=== PATIENT | male | born 1955 | race Caucasian/White ===

== ENCOUNTER 2024-01-28 07:32 | Day surgery (SDC) | payer BC ==
[2024-01-28] VITALS (9 sets, daily range): BP systolic 121–163; BP diastolic 72–96; PULSE 59–75; RESP 13–20; TEMP 97.8; O2SAT 92–95
[~2024-01-28] VITALS: Ht 177.8 cm; Wt 104.3 kg
[~2024-01-28 07:32] MED LIST: APIX5TAB PO; LOSA-535 PO; METO25TA5 PO; THYR60TA PO
[2024-01-28] MEDS ORDERED: IODIXANOL 320MG/ML 100ML BTL IV ONE ×2 (07:39→08:59)
[2024-01-28] MEDS ORDERED: HEPARIN IN NS 1000Units/500mL 1,500 ML ONE (07:39)
[2024-01-28] MEDS ORDERED: HEPARIN SODIUM (PORCINE) 5000 UNITS/ML 1ML VIAL ONE (09:06)
[2024-01-28] MEDS ORDERED: ANGIOMAX 250 MG VIAL IV ONE (09:06)
[2024-01-28] MEDS ORDERED: fentaNYL CITRATE 100 MCG/2 ML VL ONE (09:07)
[2024-01-28] MEDS ORDERED: MIDAZOLAM HCL 2MG/2ML 2ml VIAL (1mg/ml) ONE (09:07)
[2024-01-28] MEDS ORDERED: LIDOCAINE 2%HCL (LOCAL ANESTH.) INJ 20ML MDV ONE (09:07)
[2024-01-28] MEDS ORDERED: SODIUM CHL 0.9% 0 ML ONE (09:07)
[2024-01-28] MEDS ORDERED: VERAPAMIL 2.5MG/ML INJ 2ML VIAL IV ONE (09:07)
== END 2024-01-28 14:06 | disposition home or self-care (01) ==
LOC: CATH 07:32
PROVIDERS: ATTEND Internal Medicine
DX: I25.10 Atherosclerotic heart disease of native coronary artery without angina pectoris (principal); I10 Essential (primary) hypertension; G47.33 Obstructive sleep apnea (adult) (pediatric); Z91.09 Other allergy status, other than to drugs and biological substances; Z82.49 Family history of ischemic heart disease and other diseases of the circulatory system
CPT/HCPCS: 75580; 93458; C1887; C1894; J1644; J2250; J3010; J7030; Q9967; 99152

== ENCOUNTER 2025-03-26 20:59 | Inpatient (IN) | payer BC, MEDICARE ==
[~2025-03-26] VITALS: Ht 175.3 cm; Wt 104.6 kg
--- NOTE | 2025-03-26 21:13 | ECG ---
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
[2025-03-26 21:30] LABS: Hematocrit 43.8 % (41.0-53.0); Hemoglobin 15.0 g/dL (13.5-17.5); Mean Corpuscular Hemoglobin 30.2 pg (28.0-32.0); Mean Corpuscular Volume 88.5 fL (80.0-100.0); Nucleated Red Blood Cells % 0.1 %
[2025-03-26 21:36] LABS: Chloride 102 mmol/L (98-107); Potassium 4.6 mmol/L (3.5-5.1); Sodium 141 mmol/L (136-145)
[2025-03-26 21:37] LABS: Anion Gap 13 (5-15); Calcium 10.1 mg/dL (8.7-10.4); Carbon Dioxide 26 mmol/L (20-31)
--- NOTE | 2025-03-26 21:40 | DVH ---
CHEST RADIOGRAPH Indication: chest pain Technique: Single frontal view of the chest was obtained COMPARISON: None FINDINGS: Lines and Tubes: None Lungs: Clear Pleura: No effusion. No pneumothorax. Cardiomediastinal contours: Unremarkable Bones: Unremarkable IMPRESSION: 1. No acute disease.
[2025-03-26 21:42] LABS: BUN/Creatinine Ratio 12.9 (10.0-20.0); Blood Urea Nitrogen 17 mg/dL (9-23); Glucose 101 mg/dL (74-106)
--- NOTE | 2025-03-26 21:45 | ED.PDOC ---
HPI Comments 69 y/o obese M presents with c/c of nonradiating, left-sided chest pain that radiates to his left arm. Patient reports sudden, unprovoked, and atraumatic onset of pain, this evening, while driving. Pain wanes in severity. He reports mild pain, currently. Associated left-arm tingling sensations, dizziness, and hot flashes. Took 4x baby ASA's prior to ED arrival. He reports being waned off Eliquis he takes daily for DVT's he has had in the past, currently. Last oral intake of Eliquis was yesterday. Left heart catheterization performed by php magento developer Dr. Goldsmith 4-5 months ago. Past medical history:Cardiomyopathy, COPD, DVT's - on Eliquis Past surgical history: back surgery FAUCT: CP. HPI: Poor Historian. REVIEW OF SYSTEMS: CONSTITUTIONAL: Denies acute: fever, diaphoresis, chills, HEAD: Denies acute: headache, photophobia Eyes: Denies acute: Double vision, vision loss, eye pain, eye discharge. EARS: Denies acute: tinnitus, hearing loss, ear discharge, ear pain, THROAT: Denies acute: sore throat, swelling, difficulty swallowing , pain with swallowing, change in voice. NECK: Denies acute: neck pain, neck swelling, stiff neck. HEART: Denies acute : palpitations, LUNGS: Denies acute: SOB, wheezing, cough, hemoptysis ABDOMEN: Denies acute: abdominal pain, Nausea, Vomiting, diarrhea, melena , hematemesis, hematochezia SKIN: Denies acute: rash, redness, lesions, itchiness. EXTREMITIES: Denies acute: calf pain, , , weakness, denies pain in extremity. Denies acute: Low back pain. Neuro: Denies acute: focal neurological deficit, motor or sensory focal neurological deficit, tremors, seizure like activity, confusion, , change in mental status, loss of bowel or bladder function, cauda equina like symptoms. : Denies acute: dysuria, hematuria, flank pain, increase in urinary frequency. PSYCH: Denies acute: hallucination, suicidal ideation, homicidal ideation. PHYSICAL EXAM: General: ----mild----acute distress, awake and alert. Head: normocephalic, atraumatic. No raccoon's eyes, no huitron sign. Neck: supple, trachea is midline, no swelling. Throat: Normal phonation. Eyes:, no erythema, no purulent discharge, no proptosis, no icterus. Heart: regular rate, regular rhythm, no significant murmur appreciated. Lungs: no apparent respiratory distress, Able to speak in full sentences. No wheezing, no rhonchi, no crackles. No stridors Clear to auscultation bilaterally. Abdomen: non tender to palpation, non distended, soft, no guarding, no rebound, + bowel sounds. Neuro: Awake, Alert, oriented to name, self, situation, follows commands GCS=15. Speech is normal. Skin: no petechia, no purpura, no cyanosis, non-pale, not jaundice. Lower extremities: --no - Pitting edema no deformity, no focal swelling, no calf TTP. Makes eye contact. moves all four extremities. Face: no apparent facial droop. Ambulating in the ED independently. ED COURSE: DISCLAIMER: This medical document was created using an electronic medical record system with voice recognition software and computerized dictation system. Although this document has been carefully reviewed, there might still be some phonetic and typographical errors. Occasional wrong-word or "sound-alike" substitutions may have occurred due to the inherent limitations of voice recognition software. These areas are purely typographical due to imperfections of the software programs and do not reflect any compromise in the patient's medical care. Please read the chart carefully and recognize, using context, where these substitutions have occurred. Chief Complaint: Chest Pain Time Seen by MD: 21:15 Allergies: Coded Allergies: Rivaroxaban (Verified Allergy, Unknown, RASH, 01/23/24) Home Meds Reported Medications Metoprolol Tartrate (Metoprolol Tartrate) 25 Mg Tab, 25 MG PO DAILY for HTN for 30 Days, MG 01/23/24 Apixaban Base (ELIQUIS) 5 Mg Tab, 5 MG PO BID for STOP ON 01/25/24, TAB 01/23/24 Thyroid ([place] Thyroid) 60 Mg Tab, 1 TAB PO DAILY for LOW THYROID, #30 TAB 5 Refills 01/23/24 Losartan Potassium (Losartan Potassium) 100 Mg Tab, 100 MG PO DAILY for HTN for 30 Days, MG 01/23/24 Information Source: Patient Mode of Arrival: Ambulatory EKG EKG : Pulse Rate (adult): 73 Parrott: Normal Cardiac Rhythm: NSR Block: None Hypertrophy: None ST: Normal Was a procedure done? Was a procedure done?: No CP Differential Dx Differential Diagnosis: N/A Differential Diagnosis: Other (Ddx include but not limitied to gastritis, musculoskeletal pain, radiculopathy, atypical chest pain, dissection, aneurysm, ACS, unstable angina, hiatal hernia, GERD, anxiety, costochondritis, PE, pneumothroax, neoplasm, cardiac ischemia, drug abuse, anemia.) X-Ray, Labs, Meds, VS Vital Signs Date Time Temp Pulse Resp B/P (MAP) Pulse Ox O2 Delivery O2 Flow Rate FiO2 03/26/25 22:30 69 03/26/25 21:45 73 03/26/25 21:11 73 03/26/25 21:00 97.6 78 16 188/95 96 97.6 Lab Test 03/26/25 22:00 03/26/25 21:09 03/26/25 21:08 Range/Units Troponin I High Sensitivity < 3 L < 3 L </=54 ng/L Sodium Level 141 136-145 mmol/L Potassium Level 4.6 3.5-5.1 mmol/L Chloride Level 102 98-107 mmol/L Carbon Dioxide Level 26 20-31 mmol/L Anion Gap 13 5-15 Blood Urea Nitrogen 17 9-23 mg/dL Creatinine 1.32 H 0.700-1.30 mg/dL Glomerular Filtration Rate Calc 58 >90 mL/min BUN/Creatinine Ratio 12.9 10.0-20.0 Serum Glucose 101 74-106 mg/dL Calcium Level 10.1 8.7-10.4 mg/dL White Blood Count 7.8 4.4-10.8 10^3/uL Red Blood Count 4.95 4.5-5.90 10^6/uL Hemoglobin 15.0 13.5-17.5 g/dL Hematocrit 43.8 41.0-53.0 % Mean Corpuscular Volume 88.5 80.0-100.0 fL Mean Corpuscular Hemoglobin 30.2 28.0-32.0 pg Mean Corpuscular Hemoglobin Concent 34.2 32.0-36.0 g/dL Red Cell Distribution Width 13.9 11.8-14.3 % Platelet Count 279 140-450 10^3/uL Mean Platelet Volume 6.7 L 6.9-10.8 fL Neutrophils (%) (Auto) 60.1 37.0-80.0 % Lymphocytes (%) (Auto) 25.7 10.0-50.0 % Monocytes (%) (Auto) 10.5 0.0-12.0 % Eosinophils (%) (Auto) 3.0 0.0-7.0 % Basophils (%) (Auto) 0.7 0.0-2.0 % Neutrophils # (Auto) 4.7 1.6-8.6 10 ^3/uL Lymphocytes # (Auto) 2.0 0.4-5.4 10 ^3/uL Monocytes # (Auto) 0.8 0-1.3 10 ^3/uL Eosinophils # (Auto) 0.2 0-0.8 10 ^3/uL Basophils # (Auto) 0.1 0-0.2 10 ^3/uL Nucleated Red Blood Cells 0.1 % Current Medications Medications (Trade) Dose Ordered Sig/Randall Route Start Time Stop Time Status Last Admin Nitroglycerin (Ntrostat Sublingual) 0.4 mg ONCE ONCE SL 03/26/25 21:45 03/26/25 21:46 DC 03/26/25 23:35 Time of 1ST Reevaluation: 00:00 Reevaluation 1ST: Unchanged Patient Education/Counseling: Diagnosis, Treatment Family Education/Counseling: No Family Present Comments MDM: patient presented with the above HPI.---cardiac---workup was initiated. patient was found with the above mentioned diagnosis. the following medications were ordered: please refer to order lists of meds and tests obtained by myself Dr. Miller. Patient ED course and VS have been stabilized. Patient has been reassessed in the ED and remained in a stable condition. Pertinent incidental findings were discussed with the patient and/or family. Patient/family voices understanding and is agreeable with plan. Patient has been observed in the ED adequate length of time to insure improvement/stability. Escalation of care considered: Consideration of escalation to observation or admission Patient was ADMITTED to the medicine team for further evaluation and treatment of their presentation. All the reports of any imaging studies that were ordered by myself were reviewed by myself. SEPSIS Sepsis Screen Date sepsis recognized/suspect: Mar 26, 2025 Time Sepsis recognized/suspect: 2103 Recent Procedure: No On Antibiotic Therapy: No Respiratory Rate >20: No Heart Rate >90: No Temp<36 C (96.8 F) or >38.3 C: No SBP <90 or MAP <65 mmHG: No New Acute Mental Status Change: No Is the patient on CPAP, BIPAP,: No Physician Orders Chest Portable (03/26/25 21:05) Electrocardigram (03/26/25 21:05) Electrocardigram (03/26/25 22:05) Electrocardigram (03/27/25 00:05) Vital Signs Date Time Temp Pulse Resp B/P (MAP) Pulse Ox O2 Delivery O2 Flow Rate FiO2 03/26/25 22:30 69 03/26/25 21:45 73 03/26/25 21:11 73 03/26/25 21:00 97.6 78 16 188/95 96 97.6 Laboratory Tests Test 03/26/25 21:08 White Blood Count 7.8 10^3/uL (4.4-10.8) Departure 1 Departure Time of Disposition: 21:47 Impression: Primary Impression: Chest pain Disposition: ADMITTED INPATIENT Admit to: Tele Condition: Guarded Discharged With: Self Critical Care Note Critical Care Time?: No Heart Score Heart Score: Heart Score Response (Comments) Value History Moderate Suspicious 1 EKG Normal 0 Age >65 2 Risk Factors >3 or Hx ASHD 2 Troponin Normal limit 0 Total 5 I personally scribed for TRACE MILLER DO ([email or web address]) on 03/26/25 at 21:45. Electronically submitted by Dionicio Escamilla ([email or web address]). I personally scribed for TRACE MILLER DO ([email or web address]) on 03/26/25 at 21:46. Electronically submitted by Dionicio Escamilla ([email or web address]). TRACE MILLER DO Mar 26, 2025 21:45
[2025-03-26] MEDS ORDERED: NITROGLYCERIN 0.4 MG SL TAB SL PRN (23:15)
[2025-03-26] MEDS ORDERED: HYDROcodone-ACET 5/325MG TAB PO PRN (23:15)
[2025-03-26] MEDS ORDERED: ACETAMINOPHEN 325 MG TAB PO PRN (23:15)
[2025-03-26] MEDS ORDERED: MORPHINE SULFATE INJ 2 MG/ml SYRG IV PRN ×2 (23:15)
[2025-03-26] MEDS ORDERED: hydrALAZINE HCL 20 MG/ML VL IV PRN (23:15)
[2025-03-26] MEDS ORDERED: DOCUSATE SOD 100 MG CAP PO PRN (23:15)
[2025-03-26] MEDS ORDERED: ONDANSETRON HCL 4 MG/2 ML VIAL IV PRN (23:15)
[2025-03-26] MEDS: NITROGLYCERIN 0.4 MG SL TAB SL ONE (23:35)
[2025-03-27] VITALS (9 sets, daily range): BP systolic 125–163; BP diastolic 74–95; PULSE 59–85; RESP 13–18; TEMP 97.2–98.7; O2SAT 92–97
--- NOTE | 2025-03-27 00:36 | DVHHP2 ---
MILTON HUSAIN EMAIL PRODUCTION SPECIALIST 03/27/25 0036: History of Present Illness Reason for Visit: Chest pain History of Present Illness 69-year-old male with past medical history of hypertension, DVT on Eliquis presents with complaints of chest pain x1 day. Patient endorses chest pain is unprovoked. Chest pain is left-sided radiating to the left arm. Patient also endorsed feeling flushed and dizzy. Patient endorsed taking aspirin prior to arrival During the emergency department evaluation CBC is unremarkable. BMP is unremarkable. Troponins negative x2. Previously had [facility] January [address] Goldsmith, found to be normal. On arrival to the emergency department patient is noted to be hypertensive with blood pressure 188/95. Chest pain did improve after being treated with sublingual nitroglycerin. At this time there are no complaints of fevers, chills, shortness of breath, palpitations, nausea, vomiting, leg swelling. Cardiovascular: HTN Smoke: No ALCOHOL: none Drugs: None Lives: with Family Review of Systems Allergies: Coded Allergies: Rivaroxaban (Verified Allergy, Unknown, RASH, 01/23/24) Medications Current Medications Medications Dose Ordered Sig/Randall Route Start Time Stop Time Status Last Admin Dose Admin Docusate Sodium 100 mg BIDPRN PRN PO 03/26/25 23:15 Acetaminophen 650 mg Q6HP PRN PO 03/26/25 23:15 Acetaminophen/ Hydrocodone Bitart 1 tab Q6HP PRN PO 03/26/25 23:15 Ondansetron HCl 4 mg Q4HP PRN IV 03/26/25 23:15 Morphine Sulfate 2 mg Q4HPRN PRN IV 03/26/25 23:15 Nitroglycerin 0.4 mg Q5MINP PRN SL 03/26/25 23:15 Morphine Sulfate 2 mg Q30M PRN IV 03/26/25 23:15 Metoprolol Tartrate 25 mg BID PO 03/27/25 10:00 Losartan Potassium 50 mg BID PO 03/27/25 10:00 Apixaban 5 mg BID PO 03/27/25 10:00 Hydralazine HCl 10 mg Q4HP PRN IV 03/26/25 23:15 Clonidine HCl 0.1 mg BIDPRN PRN PO 03/26/25 23:15 Aspirin 81 mg DAILY PO 03/27/25 10:00 Exam Vital Signs Vital Signs Date Time Temp Pulse Resp B/P (MAP) Pulse Ox O2 Delivery O2 Flow Rate FiO2 03/27/25 00:02 68 03/26/25 23:56 132/77 (95) 03/26/25 23:36 98.3 19 95 98.3 03/26/25 23:36 Room Air General Appearance: Alert, Oriented X3, Cooperative, mild distress HEENT: Atraumatic, PERRLA, EOMI Respiratory: Clear to auscultation, Normal air movement Cardiovascular: Regular rate, Normal S1, Normal S2 Abdominal: Normal bowel sounds, Soft, No tenderness Extremities: No clubbing, No cyanosis, Normal pulses, Other (Trace edema right lower extremity) Skin: No rashes, No breakdown Neuro: Normal gait, Normal speech, Strength at 5/5 X4 ext, Cranial nerves 3-12 NL Psych/Mental Status: Mental status NL, Mood NL Labs/Xrays Labs Test 03/27/25 00:11 03/26/25 21:09 03/26/25 21:08 Range/Units Sodium Level 141 136-145 mmol/L Potassium Level 4.6 3.5-5.1 mmol/L Chloride Level 102 98-107 mmol/L Carbon Dioxide Level 26 20-31 mmol/L Anion Gap 13 5-15 Blood Urea Nitrogen 17 9-23 mg/dL Creatinine 1.32 H 0.700-1.30 mg/dL Glomerular Filtration Rate Calc 58 >90 mL/min BUN/Creatinine Ratio 12.9 10.0-20.0 Serum Glucose 101 74-106 mg/dL Calcium Level 10.1 8.7-10.4 mg/dL White Blood Count 7.8 4.4-10.8 10^3/uL Red Blood Count 4.95 4.5-5.90 10^6/uL Hemoglobin 15.0 13.5-17.5 g/dL Hematocrit 43.8 41.0-53.0 % Mean Corpuscular Volume 88.5 80.0-100.0 fL Mean Corpuscular Hemoglobin 30.2 28.0-32.0 pg Mean Corpuscular Hemoglobin Concent 34.2 32.0-36.0 g/dL Red Cell Distribution Width 13.9 11.8-14.3 % Platelet Count 279 140-450 10^3/uL Mean Platelet Volume 6.7 L 6.9-10.8 fL Neutrophils (%) (Auto) 60.1 37.0-80.0 % Lymphocytes (%) (Auto) 25.7 10.0-50.0 % Monocytes (%) (Auto) 10.5 0.0-12.0 % Eosinophils (%) (Auto) 3.0 0.0-7.0 % Basophils (%) (Auto) 0.7 0.0-2.0 % Neutrophils # (Auto) 4.7 1.6-8.6 10 ^3/uL Lymphocytes # (Auto) 2.0 0.4-5.4 10 ^3/uL Monocytes # (Auto) 0.8 0-1.3 10 ^3/uL Eosinophils # (Auto) 0.2 0-0.8 10 ^3/uL Basophils # (Auto) 0.1 0-0.2 10 ^3/uL Nucleated Red Blood Cells 0.1 % SEPSIS Sepsis Screen Date sepsis recognized/suspect: Mar 26, 2025 Time Sepsis recognized/suspect: 2103 Recent Procedure: No On Antibiotic Therapy: No Respiratory Rate >20: No Heart Rate >90: No Temp<36 C (96.8 F) or >38.3 C: No SBP <90 or MAP <65 mmHG: No New Acute Mental Status Change: No Is the patient on CPAP, BIPAP,: No Physician Orders Chest Portable (03/26/25 21:05) Troponin-I Hs (03/27/25 00:05) Electrocardigram (03/26/25 22:05) Electrocardigram (03/27/25 00:05) Admit (03/26/25 23:15) Code Status (03/26/25:15) Vital Signs .PER UNIT PROTOCOL (03/26/25 23:15) Review Orders With Adm.Md (03/26/25 23:15) Encourage Activity As Tolerate (03/26/25 23:15) Oxygen By Face Mask (03/26/25 23:15) Docusate Sodium Capsule (Colace Capsule) (03/26/25 23:15) Acetaminophen Tablet (Tylenol Tablet) (03/26/25 23:15) Notify Md Of Changes From Base (03/26/25 23:15) Advance Directive (03/26/25 23:15) Echo 2d Mode Cardiac Dop (03/26/25 23:15) Basic Metabolic Panel (03/27/25 05:00) Basic Metabolic Panel (03/28/25 05:00) Basic Metabolic Panel (03/29/25 05:00) Complete Blood Count (03/27/25 05:00) Complete Blood Count (03/28/25 05:00) Complete Blood Count (03/29/25 05:00) Patient Condition (03/26/25 23:15) Allergies (03/26/25 23:15) Hydrocodone-Acet 5/325mg Tab ([place] 5/32 (03/26/25 23:15) Ondansetron Hcl (Zofran) (03/26/25 23:15) Morphine Sulfate Injection (03/26/25 23:15) Sequential Compression Device (03/26/25 ) Nitroglycerin Sublingual (Ntrostat Subli (03/26/25 23:15) Morphine Sulfate Injection (03/26/25 23:15) Stat Ekg For Chest Pain (03/26/25 23:15) Notify Md Of Changes From Base (03/26/25 23:15) Thread Checker For 24 Hours (03/26/25 23:15) Emergency Dysrhythmia Protocol (03/26/25 23:15) Rhythm Strips Once Every Shift (03/26/25 23:15) Oxygen By Nasal Cannula (03/26/25 23:15) Cardiac Diet-2gna,Lofat,Lochol (03/27/25 Breakfast) Metoprolol Tartrate Tablet (Lopressor Ta (03/27/25 10:00) Losartan Tablet (Cozaar Tablet) (03/27/25 10:00) Apixaban (Eliquis) (03/27/25 10:00) * Cardiology Consult (03/26/25 23:15) Hydralazine Injection (Apresoline Inject (03/26/25 23:15) Orthostatic Vital Signs (03/27/25 10:00) Orthostatic Vital Signs (03/27/25 14:00) Orthostatic Vital Signs (03/27/25 18:00) Clonidine Hcl Tablet (Catapres Tablet) (03/26/25 23:15) Aspirin Enteric Coated Tablet (Ecotrin E (03/27/25 10:00) Vital Signs Date Time Temp Pulse Resp B/P (MAP) Pulse Ox O2 Delivery O2 Flow Rate FiO2 03/27/25 00:02 68 03/26/25 23:56 64 132/77 (95) 03/26/25 23:36 98.3 65 19 154/71 (98) 95 98.3 03/26/25 23:36 65 19 95 Room Air 03/26/25 23:35 154/71 03/26/25 22:30 69 03/26/25 21:45 73 03/26/25 21:11 73 03/26/25 21:00 97.6 78 16 188/95 96 97.6 Laboratory Tests Test 03/26/25 21:08 White Blood Count 7.8 10^3/uL (4.4-10.8) Medications Medications Dose Ordered Sig/Randall Route Start Time Stop Time Status Last Admin Dose Admin Nitroglycerin 0.4 mg ONCE ONCE SL 03/26/25 21:45 03/26/25 21:46 DC 03/26/25 23:35 0.4 MG Assessment/Plan Assessment/Plan Chest pain Malignant hypertension Plan Admit to telemetry Cardiology consult. Echocardiogram. ASA. Continue home medication. As needed antihypertensive. for optimal BP management. DVT PPX SCD, on oral anticoagulation Plan discussed with: Patient, Spouse My Orders Orders - MILTON HUSAIN NP Procedure Category Date Status Time Admit ADMIT 03/26/25 Transmitted 23:15 Code Status CODE 03/26/25 Transmitted 23:15 Vital Signs [facility] 03/26/25 In Process 23:15 Review Orders With RUBIO 03/26/25 In Process Adm. 23:15 Encourage Activity As RUBIO 03/26/25 In Process Tolerate 23:15 Oxygen By Face Mask RT 03/26/25 Transmitted 23:15 Docusate Sodium [facility] 03/26/25 In Process Capsule (Colace 23:15 Acetaminophen Tablet [facility] 03/26/25 In Process (Tylenol Tablet) 23:15 Notify Of Changes RUBIO 03/26/25 In Process From Base 23:15 Advance Directive [facility] 03/26/25 In Process 23:15 Echo 2d Mode Cardiac US 03/26/25 Logged DOP 23:15 Basic Metabolic Panel LAB 03/27/25 Logged 05:00 Basic Metabolic Panel LAB 03/28/25 Verified 05:00 Basic Metabolic Panel LAB 03/29/25 Verified 05:00 Complete Blood Count LAB 03/27/25 Logged 05:00 Complete Blood Count LAB 03/28/25 Verified 05:00 Complete Blood Count LAB 03/29/25 Verified 05:00 Patient Condition ORDERS 03/26/25 Transmitted 23:15 Allergies RUBIO 03/26/25 In Process 23:15 Hydrocodone-Acet PHA 03/26/25 In Process 5/325mg Tab ([place] 23:15 Ondansetron Hcl PHA 03/26/25 In Process (Zofran) 23:15 Morphine Sulfate PHA 03/26/25 In Process Injection 23:15 Sequential RUBIO 03/26/25 In Process Compression Device Nitroglycerin PHA 03/26/25 In Process Sublingual (Ntrostat 23:15 Morphine Sulfate PHA 03/26/25 In Process Injection 23:15 Stat Ekg For Chest RUBIO 03/26/25 In Process Pain 23:15 Notify Of Changes RUBIO 03/26/25 In Process From Base 23:15 Thread Checker For RUBIO 03/26/25 In Process 24 Hours 23:15 Emergency Dysrhythmia RUBIO 03/26/25 In Process Protocol 23:15 Rhythm Strips Once RUBIO 03/26/25 In Process Every Shift 23:15 Oxygen By Nasal RT 03/26/25 Transmitted Cannula 23:15 Cardiac DIET 03/27/25 Transmitted Diet-2gna,Lofat,Lochol Breakfast Metoprolol Tartrate PHA 03/27/25 In Process Tablet (Lopressor Ta 10:00 Losartan Tablet PHA 03/27/25 In Process (Cozaar Tablet) 10:00 Apixaban (Eliquis) PHA 03/27/25 In Process 10:00 * Cardiology Consult CONS 03/26/25 Transmitted 23:15 Hydralazine Injection PHA 03/26/25 In Process (Apresoline Inject 23:15 Orthostatic Vital ORDERS 03/27/25 Transmitted Signs 10:00 Orthostatic Vital ORDERS 03/27/25 Transmitted Signs 14:00 Orthostatic Vital ORDERS 03/27/25 Transmitted Signs 18:00 Clonidine Hcl Tablet PHA 03/26/25 In Process (Catapres Tablet) 23:15 Aspirin Enteric PHA 03/27/25 In Process Coated Tablet 10:00 Date of Service: Mar 27, 2025 Billing Provider: LAWRENCE DE LEÓN MD Common Visit Codes: NOT BILLABLE LAWRENCE DE LEÓN MD 03/27/25 1626: Review of Systems Allergies: Coded Allergies: Rivaroxaban (Verified Allergy, Unknown, RASH, 01/23/24) MILTON HUSAIN NP Mar 27, 2025 00:36 LAWRENCE DE LEÓN MD Mar 27, 2025 16:26
[2025-03-27 08:13] LABS: Hematocrit 41.4 % (41.0-53.0); Hemoglobin 14.1 g/dL (13.5-17.5); Mean Corpuscular Hemoglobin 30.2 pg (28.0-32.0); Mean Corpuscular Volume 88.6 fL (80.0-100.0); Nucleated Red Blood Cells % 0.1 %
[2025-03-27 08:26] LABS: Anion Gap 11 (5-15); Carbon Dioxide 24 mmol/L (20-31); Chloride 104 mmol/L (98-107); Potassium 4.4 mmol/L (3.5-5.1); Sodium 139 mmol/L (136-145)
[2025-03-27 08:28] LABS: Calcium 9.6 mg/dL (8.7-10.4)
[2025-03-27 08:33] LABS: BUN/Creatinine Ratio 11.8 (10.0-20.0); Blood Urea Nitrogen 13 mg/dL (9-23); Glucose 88 mg/dL (74-106)
[2025-03-27] MEDS: APIXABAN 5 MG TAB PO SCH (09:30)
[2025-03-27] MEDS: LOSARTAN POTASSIUM 50 MG TAB PO SCH (09:30)
[2025-03-27] MEDS: METOPROLOL TARTRATE 25 MG TAB PO SCH (09:31)
--- NOTE | 2025-03-27 11:57 | DVHINCON2 ---
Date Seen: Mar 27, 2025 Referring Physician LISA Bass Reason for Consultation Chest pain History of Present Illness This is a 69-year-old male patient who presents to emergency room with chief complaint of chest pain. The patient reports that the chest pain began at approximately 6:30 p.m. yesterday while driving home from the store. He describes the pain as unprovoked, intermittent, sharp in nature, left-sided with radiating tightness down his left arm. He denies any associated symptoms such as shortness of breath or dizziness. He denies any alleviating or aggravating factors. He reports that the pain went away by the time he arrived at home. The pain came back shortly after, which prompted him to come to the emergency room for further evaluation. Initial twelve electrocardiogram reveals normal sinus rhythm without any significant ST segment changes. Serial troponin levels have been negative. Significant past medical history includes mild coronary artery disease, hypertension, left lower extremity DVT (on Eliquis), COPD, and thyroid disease. The patient follows up with mobile equipment servicer in the outpatient setting. Of note, the patient underwent a coronary angiogram with left heart catheterization on 01/28/2024 which revealed mild coronary artery disease (40-60% stenosis to mid circumflex). Past Medical History Past medical history reviewed. No other significant than mentioned above. Past Surgical History Back surgery Family History: Rectal cancer G8 MOTHER Family History Family history reviewed. Social History Denies the use of tobacco, alcohol or illicit drugs. Allergies: Coded Allergies: Rivaroxaban (Verified Allergy, Unknown, RASH, 01/23/24) Home Meds Reported Medications Metoprolol Tartrate (Metoprolol Tartrate) 25 Mg Tab, 25 MG PO DAILY for HTN for 30 Days, MG 01/23/24 Apixaban Base (ELIQUIS) 5 Mg Tab, 5 MG PO BID for STOP ON 01/25/24, TAB 01/23/24 Thyroid ([place] Thyroid) 60 Mg Tab, 1 TAB PO DAILY for LOW THYROID, #30 TAB 5 Refills 01/23/24 Losartan Potassium (Losartan Potassium) 100 Mg Tab, 100 MG PO DAILY for HTN for 30 Days, MG 01/23/24 Home Meds Home medications reviewed. Current Medications Current Medications Medications (Trade) Dose Ordered Sig/Randall Route PRN Reason Start Time Stop Time Status Last Admin Docusate Sodium (Colace Capsule) 100 mg BIDPRN PRN PO FOR CONSTIPATION 03/26/25 23:15 Acetaminophen (Tylenol Tablet) 650 mg Q6HP PRN PO PAIN SCALE 1-3 OR TEMP>100.4 03/26/25 23:15 Acetaminophen/ Hydrocodone Bitart ([place] 5/325MG Tab) 1 tab Q6HP PRN PO MODERATE PAIN (4-6 PAIN SCALE) 03/26/25 23:15 Ondansetron HCl (Zofran) 4 mg Q4HP PRN IV NAUSEA / VOMITING 03/26/25 23:15 Morphine Sulfate 2 mg Q4HPRN PRN IV SEVERE PAIN (7-10 PAIN SCALE) 03/26/25 23:15 Nitroglycerin (Ntrostat Sublingual) 0.4 mg Q5MINP PRN SL FOR CHEST PAIN 03/26/25 23:15 Morphine Sulfate 2 mg Q30M PRN IV FOR CHEST PAIN 03/26/25 23:15 Metoprolol Tartrate (Lopressor Tablet) 25 mg BID PO 03/27/25 10:00 03/27/25 09:31 Losartan Potassium (Cozaar Tablet) 50 mg BID PO 03/27/25 10:00 03/27/25 09:30 Apixaban (Eliquis) 5 mg BID PO 03/27/25 10:00 03/27/25 09:30 Hydralazine HCl (Apresoline Injection) 10 mg Q4HP PRN IV SBP > 160 03/26/25 23:15 Clonidine HCl (Catapres Tablet) 0.1 mg BIDPRN PRN PO SBP > 180 03/26/25 23:15 Aspirin (Ecotrin Enteric Coated Tablet) 81 mg DAILY PO 03/27/25 10:00 Review of Systems Constitutional: No symptom reported Ears, Nose, & Throat: No symptom reported Eyes: No symptom reported Neurological: No symptoms reported Pulmonary/Respiratory: No symptoms reported Cardiovascular: Chest pain Gastrointestinal: No symptom reported Genitourinary: No symptom reported Musculoskeletal: No symptom reported Skin: No symptom reported Psychiatric: No symptom reported Endocrine: No symptom reported Hematologic/Lymphatic: No symptom reported Vital Signs Vital Signs Date Time Temp Pulse Resp B/P (MAP) Pulse Ox O2 Delivery O2 Flow Rate FiO2 03/27/25 09:31 68 128/83 03/27/25 05:00 97.6 18 96 97.6 03/27/25 03:05 Room Air* 0 21 Physical Exam General Appearance: Cooperative. Well-developed. Well-nourished. No acute distress. Pulmonary/Respiratory: Clear, bilateral breaths sounds. Cardiovascular/Chest: Regular rate and rhythm. Peripheral Pulses: 2+ Radial (R). 2+ Radial (L). 2+ Pedal (R). 2+ Pedal (L) Abdominal Exam: Normal bowel sounds. Ankle Exam: Negative ankle edema Lower extremities: Negative lower extremity edema Neuro/Mental Status: A/OX4, coherent. Thoughts/Psych: Normal thought pattern. Appropriate mood and affect. Good judgment and insight. Appearance: No acute distress. Skin Exam: Normal inspection. Normal color. Warm and dry. Labs/Diagnostic Data Labs Test 03/27/25 07:47 03/27/25 00:11 Range/Units White Blood Count 6.6 4.4-10.8 10^3/uL Red Blood Count 4.67 4.5-5.90 10^6/uL Hemoglobin 14.1 13.5-17.5 g/dL Hematocrit 41.4 41.0-53.0 % Mean Corpuscular Volume 88.6 80.0-100.0 fL Mean Corpuscular Hemoglobin 30.2 28.0-32.0 pg Mean Corpuscular Hemoglobin Concent 34.1 32.0-36.0 g/dL Red Cell Distribution Width 14.1 11.8-14.3 % Platelet Count 237 140-450 10^3/uL Mean Platelet Volume 6.6 L 6.9-10.8 fL Neutrophils (%) (Auto) 61.3 37.0-80.0 % Lymphocytes (%) (Auto) 25.2 10.0-50.0 % Monocytes (%) (Auto) 8.7 0.0-12.0 % Eosinophils (%) (Auto) 3.8 0.0-7.0 % Basophils (%) (Auto) 1.0 0.0-2.0 % Neutrophils # (Auto) 4.1 1.6-8.6 10 ^3/uL Lymphocytes # (Auto) 1.7 0.4-5.4 10 ^3/uL Monocytes # (Auto) 0.6 0-1.3 10 ^3/uL Eosinophils # (Auto) 0.3 0-0.8 10 ^3/uL Basophils # (Auto) 0.1 0-0.2 10 ^3/uL Nucleated Red Blood Cells 0.1 % Sodium Level 139 136-145 mmol/L Potassium Level 4.4 3.5-5.1 mmol/L Chloride Level 104 98-107 mmol/L Carbon Dioxide Level 24 20-31 mmol/L Anion Gap 11 5-15 Blood Urea Nitrogen 13 9-23 mg/dL Creatinine 1.10 0.700-1.30 mg/dL Glomerular Filtration Rate Calc 73 >90 mL/min BUN/Creatinine Ratio 11.8 10.0-20.0 Serum Glucose 88 74-106 mg/dL Calcium Level 9.6 8.7-10.4 mg/dL Troponin I High Sensitivity < 3 L </=54 ng/L Assessment Chest pain, rule out progressive coronary artery disease Hypertensive urgency Rule out structural heart disease Mild coronary artery disease (40-60% stenosis to mid circumflex) Left lower extremity DVT (on Eliquis) COPD Thyroid disease Plan/Recommendation We will continue with the following plan/recommendations (Dr. Goldsmith): * Transthoracic echocardiogram to evaluate cardiac function * Chest pain protocol * HEART score: * Single antiplatelet therapy and lipid-lowering agent * Blood pressure control * Cardiac surveillance * Coronary angiogram Patient seen and examined at bedside with . Given clinical presentation and previously established mild CAD, the patient may benefit from a coronary angiogram.The procedure was discussed with the patient in full detail including risks and benefits. Risks include but are not limited to bleeding, contrast- induced nephropathy, coronary dissection, stroke, and even . The patient understands and is agreeable to undergo the procedure. We will schedule the patient at soonest availability on 03/28/2025. Thank you for allowing us to care for this patient. Please call with any questions or concerns. Critical care time spent: 44 minutes This medical document was created using an electronic medical record system with voice recognition software and computerized dictation system. Although this document has been carefully reviewed, there might still be some phonetic and typographical errors. Occasional wrong-word or ``sound-alike substitutions may have occurred due to the inherent limitations of voice recognition software. These areas are purely typographical due to imperfections of the software programs and do not reflect any compromise in the patient's medical care. Please read the chart carefully and recognize, using context, where these substi tutions have occurred. Plan discussed with: Patient NYHA Physical activity limitations: NA Date of Service: Mar 27, 2025 Billing Provider: LEONIE ZARATE Cardiology Common Codes: 91128-[id number] INP/OBS CARE (High) Cardiology Consultation Codes: [id number] CONSULT <45MIN LEONIE ZARATE Mar 27, 2025 11:57
[2025-03-27] MEDS: ASPirin-EC 81 mg tab PO SCH (14:32)
--- NOTE | 2025-03-27 18:01 | DVHPN2 ---
Consult Progress Note Date Seen: Mar 27, 2025 Subjective Patient reports: Feels better Review of Systems: HEENT:Normal, CVS:Abnormal (Chest pain and tingling), RESPIRATORY:Normal, GI:Normal, :Normal, MSK:Normal, NEURO:Abnormal (Tingling down his left arm) Objective vital signs Vital Sign Date Time Temp Pulse Resp B/P (MAP) Pulse Ox O2 Delivery O2 Flow Rate FiO2 03/27/25 10:31 61 125/83 03/27/25 05:00 97.6 18 96 97.6 03/27/25 03:05 Room Air* 0 21 medications Current Medications Medications Dose Ordered Sig/Randall Route Start Time Stop Time Status Last Admin Dose Admin Docusate Sodium 100 mg BIDPRN PRN PO 03/26/25 23:15 Acetaminophen 650 mg Q6HP PRN PO 03/26/25 23:15 Acetaminophen/ Hydrocodone Bitart 1 tab Q6HP PRN PO 03/26/25 23:15 Ondansetron HCl 4 mg Q4HP PRN IV 03/26/25 23:15 Morphine Sulfate 2 mg Q4HPRN PRN IV 03/26/25 23:15 Nitroglycerin 0.4 mg Q5MINP PRN SL 03/26/25 23:15 Morphine Sulfate 2 mg Q30M PRN IV 03/26/25 23:15 Metoprolol Tartrate 25 mg BID PO 03/27/25 10:00 03/27/25 09:31 25 MG Losartan Potassium 50 mg BID PO 03/27/25 10:00 03/27/25 09:30 50 MG Hydralazine HCl 10 mg Q4HP PRN IV 03/26/25 23:15 Clonidine HCl 0.1 mg BIDPRN PRN PO 03/26/25 23:15 Aspirin 81 mg DAILY PO 03/27/25 10:00 03/27/25 14:32 81 MG Examination: GENERAL:Normal, HEENT:Normal, NECK:Normal, LUNGS:Normal, CVS:Normal, ABDOMEN:Normal, MSK:Normal, SKIN:Normal, NEURO:Normal, :Normal laboratory and microbiology Laboratory Tests 03/27/25 07:47 Test 03/27/25 07:47 Range/Units Serum Glucose 88 74-106 mg/dL Problem List/Assessment/Plan Problem List/Assessment/Plan EKG reviewed. Patient with chest pain and previous history of an angiographic evaluation showing disease in the circumflex of uncertain significance. Rule out progressive CAD. Hypertension. Increased BMI. Recommendations: Discussed with patient. Given recurrent symptoms of chest pain and palpitations with substernal pressure with radiation to the left arm and given associated history of hypertension, patient should have cardiac catheterization therapeutic intervention. I discussed with him in the agrees to have procedure done. Risks and benefits explained Plan discussed with: Patient Date of Service: Mar 27, 2025 Billing Provider: NICKOLAS QUIROZ Sr., MD Cardiology Common Codes: 44395-[id number] INP/OBS CARE (High) NICKOLAS QUIROZ Sr., MD Mar 27, 2025 18:01
[2025-03-27] MEDS: APIXABAN 5 MG TAB ONE (18:40)
[2025-03-27] MEDS: METOPROLOL TARTRATE 25 MG TAB ONE (18:40)
[2025-03-27] MEDS: LOSARTAN POTASSIUM 50 MG TAB ONE (18:40)
[2025-03-27] MEDS ORDERED: hydrALAZINE HCL 20 MG/ML VL IV PRN (22:15)
[2025-03-27] MEDS ORDERED: HYDROcodone-ACET 5/325MG TAB PO PRN (22:15)
[2025-03-27] MEDS ORDERED: NITROGLYCERIN 0.4 MG SL TAB SL PRN (22:15)
[2025-03-27] MEDS ORDERED: ACETAMINOPHEN 325 MG TAB PO PRN (22:15)
[2025-03-27] MEDS ORDERED: DOCUSATE SOD 100 MG CAP PO PRN (22:15)
[2025-03-27] MEDS ORDERED: ONDANSETRON HCL 4 MG/2 ML VIAL IV PRN (22:15)
[2025-03-27] MEDS ORDERED: MORPHINE SULFATE INJ 2 MG/ml SYRG IV PRN ×2 (22:15)
[2025-03-27] MEDS: ATORVASTATIN 20 MG TAB PO SCH (22:41)
[2025-03-27] MEDS: METOPROLOL TARTRATE 25 MG TAB PO ONE (22:41)
[2025-03-27] MEDS: LOSARTAN POTASSIUM 50 MG TAB PO ONE (22:42)
[2025-03-28] VITALS (8 sets, daily range): BP systolic 112–136; BP diastolic 65–81; PULSE 50–70; RESP 12–20; TEMP 97.3–98.7; O2SAT 92–97
[2025-03-28 03:56] LABS: Hematocrit 41.1 % (41.0-53.0); Hemoglobin 14.1 g/dL (13.5-17.5); Mean Corpuscular Hemoglobin 30.1 pg (28.0-32.0); Mean Corpuscular Volume 87.6 fL (80.0-100.0); Nucleated Red Blood Cells % 0.1 %
[2025-03-28 04:01] LABS: Anion Gap 8 (5-15); Carbon Dioxide 29 mmol/L (20-31); Chloride 104 mmol/L (98-107); Potassium 4.4 mmol/L (3.5-5.1); Sodium 141 mmol/L (136-145)
[2025-03-28 04:02] LABS: Calcium 9.3 mg/dL (8.7-10.4)
[2025-03-28 04:07] LABS: BUN/Creatinine Ratio 12.9 (10.0-20.0); Blood Urea Nitrogen 17 mg/dL (9-23); Glucose 94 mg/dL (74-106)
[2025-03-28 04:08] LABS: Magnesium 2.1 mg/dL (1.6-2.6)
[2025-03-28 04:40] LABS: Urine Protein, UAD Negative (Negative)
[2025-03-28 04:43] LABS: INR 1.02 (0.9-1.15); Partial Thromboplastin Time 26.8 SEC (24.5-34.5); Prothrombin Time 10.8 sec (9.3-11.8)
[2025-03-28 04:46] LABS: Cholesterol 136 mg/dL (< 200); HDL Cholesterol 28 mg/dL (40-59); Triglycerides 191 mg/dL (< 150)
[2025-03-28] MEDS: IODIXANOL 320MG/ML 100ML BTL IV ONE (07:55)
[2025-03-28] MEDS: VERAPAMIL 2.5MG/ML INJ 2ML VIAL IV ONE (08:02)
[2025-03-28] MEDS: fentaNYL CITRATE 100 MCG/2 ML VL ONE (08:02)
[2025-03-28] MEDS: HEPARIN SODIUM (PORCINE) 5000 UNITS/ML 1ML VIAL ONE (08:02)
[2025-03-28] MEDS: NITROGLYCERIN 50MG/250ML 250 ML IV ONE (08:03)
[2025-03-28] MEDS: LIDOCAINE 2%HCL (LOCAL ANESTH.) INJ 20ML MDV ONE (08:03)
[2025-03-28] MEDS: MIDAZOLAM HCL 2MG/2ML 2ml VIAL (1mg/ml) ONE (08:03)
[2025-03-28] MEDS: ANGIOMAX 250 MG VIAL IV ONE (08:17)
[2025-03-28] MEDS: SODIUM CHL 0.9% 0 ML ONE (08:17)
--- NOTE | 2025-03-28 08:27 | ECG ---
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
--- NOTE | 2025-03-28 08:27 | ECG ---
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
--- NOTE | 2025-03-28 09:10 | DVHOP2 ---
Operative Report - 2 Report Details Date: 03/28/25 Preop Diagnosis: CAD Postop Diagnosis: Mild CAD. Diastolic dysfunction. Surgeon: Nickolas Goldsmith MD Anesthesiologist: Conscious sedation Anesthesia: Mac, Local Consent: The patient was informed of the risks and benefits of the procedure. These include but are not limited to complications of anesthesia, postoperative infection, incomplete relief of symptoms, recurrence of symptoms, damage to blood vessels, nerves and tendons, deep venous thrombosis, pulmonary embolism and possible need for repeat surgery in the future. Complications: No complications Findings: Mild CAD. Impaired diastolic relaxation. Elevated end-diastolic pressures. Indications for Surgery: Chest pain. Name of Procedure Performed Left heart catheterization. Bilateral cine coronary angiography. Left ventriculography. Procedure Details Procedure Details: Prior local anesthesia with 2% lidocaine to the right wrist and full informed consent obtained the patient was prepped and draped in the usual fashion followed by placement of a six Swedish sheath into the radial artery through which a Simeon catheter and a tiger catheter was used for ventriculography and cannulation of both right and left coronary ostia without complications. Fractional flow reserve evaluation was performed with a [employer] program to evaluate significance of the stenosis in the circumflex coronary artery. Hemodynamics aortic blood pressure was 130/70. End-diastolic pressure was 19. There was no gradient across the aortic valve on pullback. Coronary RCA is a large vessel it is normal in its proximal mid and distal segments. The PDA of the posterolateral branches are normal. Left main is large and normal. Left anterior descending coronary artery is a large vessel. There was no stenosis in its proximal portion the midportion has a mild plaque at the diagonal with about a 10-15% stenosis. The circumflex is a large vessel. Two diagonal branches. Main circumflex marginal branch has what appears to be a hemodynamically intermediate stenosis of 50-70%. At its mid section there is a plaque is of uncertain significance. Fractional flow reserve evaluation as noted above reveals an FFR of 0.93 at the focal point and a 0.83 at the distal segment however distal artery is rather small and not amenable to intervention. Ventriculography in the ESCAMILLA projection shows an EF of 50%. Impression elevated left ventricular end-diastolic pressure at rest with normal ejection fraction. Impaired diastolic relaxation with high end-diastolic pressures. Mild coronary artery disease involving the circumflex coronary at its mid section. No need for intervention at this time. Recommendations: Patient will undergo treatment with Jardiance and anti inflammatory regimen as well as low-dose statins Condition Good Disposition Home Date of Service: Mar 28, 2025 Billing Provider: NICKOLAS GOLDSMITH Sr., MD Cardiology Common Codes: [id number] INP/OBS CARE (High) Cardiology Procedure Codes: 14776-CMCK HEART CATH W/INTRA INJ (Fractional flow evaluation of the circumflex coronary artery.) NICKOLAS GOLDSMITH Sr., MD Mar 28, 2025 09:10
[2025-03-28] MEDS: ASPirin-EC 81 mg tab PO SCH (10:00)
[2025-03-28] MEDS: METOPROLOL TARTRATE 25 MG TAB PO SCH (10:00)
[2025-03-28] MEDS: LOSARTAN POTASSIUM 50 MG TAB PO SCH (10:00)
--- NOTE | 2025-03-28 13:16 | DVHPN2 ---
Consult Progress Note Date Seen: Mar 28, 2025 Subjective Review of Systems: CVS:Normal, RESPIRATORY:Normal, NEURO:Normal Objective vital signs Vital Sign Date Time Temp Pulse Resp B/P (MAP) Pulse Ox O2 Delivery O2 Flow Rate FiO2 03/28/25 09:40 50 12 112/65 (81) 95 03/28/25 08:00 Room Air* 0 21 03/28/25 05:00 97.4 97.4 Total Intake and Output 03/27/25 03/27/25 03/28/25 15:00 23:00 07:00 Intake Total 500 ml 0 ml Output Total 3 ml Balance 497 ml 0 ml medications Current Medications Medications Dose Ordered Sig/Randall Route Start Time Stop Time Status Last Admin Dose Admin Atorvastatin Calcium 20 mg HS PO 03/27/25 22:00 03/27/25 22:41 20 MG Docusate Sodium 100 mg BIDPRN PRN PO 03/27/25 22:15 Acetaminophen 650 mg Q6HP PRN PO 03/27/25 22:15 Acetaminophen/ Hydrocodone Bitart 1 tab Q6HP PRN PO 03/27/25 22:15 Ondansetron HCl 4 mg Q4HP PRN IV 03/27/25 22:15 Morphine Sulfate 2 mg Q4HPRN PRN IV 03/27/25 22:15 Nitroglycerin 0.4 mg Q5MINP PRN SL 03/27/25 22:15 Morphine Sulfate 2 mg Q30M PRN IV 03/27/25 22:15 Metoprolol Tartrate 25 mg BID PO 03/28/25 10:00 Losartan Potassium 50 mg BID PO 03/28/25 10:00 Hydralazine HCl 10 mg Q4HP PRN IV 03/27/25 22:15 Clonidine HCl 0.1 mg BIDPRN PRN PO 03/27/25 22:15 Aspirin 81 mg DAILY PO 03/28/25 10:00 Examination: LUNGS:Normal, CVS:Normal, NEURO:Normal laboratory and microbiology Laboratory Tests 03/28/25 03:26 Test 03/28/25 03:26 Range/Units Serum Glucose 94 74-106 mg/dL Problem List/Assessment/Plan Problem List/Assessment/Plan Chest pain with mild coronary artery disease of the LCx (50-70% stenosis) Hypertensive urgency Rule out structural heart disease Left lower extremity DVT (on Eliquis) Dyslipidemia, newly diagnosed Pre-diabetes, newly diagnosed Thyroid disease COPD * Transthoracic echocardiogram, images taken, pending reading * Cardiac catheterization and coronary angiogram revealed mild coronary artery disease involving the LCx at its mid-section. No need for intervention at this time (see full dictated report) Plan/Recommendation (Dr. Goldsmith) Transthoracic echocardiogram completed, pending reading. The patient underwent a coronary angiogram with cardiac catheterization revealing mild coronary artery disease involving the left circumflex coronary at its mid section with FFR of 0.93 at the focal point and a 0.83 at the distal segment however distal artery is rather small and not amenable for intervention. Recommendations are for single-antiplatelet therapy, lipid lowering agent, SGLT2i, and anti-inflammatory regimen as needed. Strongly counseled on Mediterranean diet, exercise, and weight loss. 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 Goldsmith as outpatient given mild CAD. In the setting of an unremarkable transthoracic echocardiogram, there is no further cardiac workup indicated at this time. Thank you for allowing us to care for this patient. This medical document was created using an electronic medical record system with voice recognition software and computerized dictation system. Although this document has been carefully reviewed, there might still be some phonetic and typographical errors. Occasional wrong-word or ``sound-alike substitutions may have occurred due to the inherent limitations of voice recognition software. These areas are purely typographical due to imperfections of the software programs and do not reflect any compromise in the patient's medical care. Please read the chart carefully and recognize, using context, where these substitutions have occurred. Plan discussed with: Patient, Spouse, Daughter, Other Date of Service: Mar 28, 2025 Billing Provider: MAXI DAVID Cardiology Common Codes: [id number] [facility] MAXI DAVID Mar 28, 2025 13:16
[2025-03-28] MEDS ORDERED: LOSA-534 PO (16:04)
[2025-03-28] MEDS ORDERED: ASPI-543 PO (16:04)
[2025-03-28] MEDS ORDERED: MET25T PO (16:04)
[2025-03-28] MEDS ORDERED: ATOR20TA50 PO (16:04)
[2025-03-28] MEDS ORDERED: EMPA1TAB PO (16:04)
--- NOTE | 2025-03-28 16:08 | DVHDS2 ---
Discharge Summary Date of Admission Mar 26, 2025 at 23:15 Date of Discharge: Mar 28, 2025 Labs/Diagnostic Data: Laboratory Results Test 03/28/25 04:12 03/28/25 03:26 03/27/25 00:11 Urine Color Colorless (Yellow) Urine Clarity Clear (Clear) Urine pH 6.0 (5.0-9.0) Urine Specific [place] 1.007 (1.001-1.035) Urine Protein Negative (Negative) Urine Ketones Negative (Negative) Urine Blood Negative /uL (Negative) Urine Nitrite Negative (Negative) Urine Bilirubin Negative (Negative) Urine Urobilinogen Normal mg/dL (Negative) Urine Leukocyte Esterase Negative /uL (Negative) Urine RBC None seen /hpf (0 - 3) Urine Microscopic WBC < 1 /HPF (0-3) Urine Squamous Epithelial Cells Few /hpf (<5) Urine Bacteria None seen /hpf (None Seen) Urine Mucus Few (None Seen) Urine Glucose Normal mg/dL (Normal) White Blood Count 6.0 10^3/uL (4.4-10.8) Red Blood Count 4.68 10^6/uL (4.5-5.90) Hemoglobin 14.1 g/dL (13.5-17.5) Hematocrit 41.1 % (41.0-53.0) Mean Corpuscular Volume 87.6 fL (80.0-100.0) Mean Corpuscular Hemoglobin 30.1 pg (28.0-32.0) Mean Corpuscular Hemoglobin Concent 34.4 g/dL (32.0-36.0) Red Cell Distribution Width 13.5 % (11.8-14.3) Platelet Count 235 10^3/uL (140-450) Mean Platelet Volume 6.7 fL (6.9-10.8) Neutrophils (%) (Auto) 63.2 % (37.0-80.0) Lymphocytes (%) (Auto) 24.3 % (10.0-50.0) Monocytes (%) (Auto) 8.8 % (0.0-12.0) Eosinophils (%) (Auto) 3.1 % (0.0-7.0) Basophils (%) (Auto) 0.6 % (0.0-2.0) Neutrophils # (Auto) 3.8 10 ^3/uL (1.6-8.6) Lymphocytes # (Auto) 1.5 10 ^3/uL (0.4-5.4) Monocytes # (Auto) 0.5 10 ^3/uL (0-1.3) Eosinophils # (Auto) 0.2 10 ^3/uL (0-0.8) Basophils # (Auto) 0 10 ^3/uL (0-0.2) Nucleated Red Blood Cells 0.1 % Prothrombin Time 10.8 sec (9.3-11.8) Prothrombin Time INR 1.02 (0.9-1.15) Activated Partial Thromboplast Time 26.8 SEC (24.5-34.5) Sodium Level 141 mmol/L (136-145) Potassium Level 4.4 mmol/L (3.5-5.1) Chloride Level 104 mmol/L (98-107) Carbon Dioxide Level 29 mmol/L (20-31) Anion Gap 8 (5-15) Blood Urea Nitrogen 17 mg/dL (9-23) Creatinine 1.32 mg/dL (0.700-1.30) Glomerular Filtration Rate Calc 58 mL/min (>90) BUN/Creatinine Ratio 12.9 (10.0-20.0) Serum Glucose 94 mg/dL (74-106) Hemoglobin A1c 5.6 % A1C (<5.7) Calcium Level 9.3 mg/dL (8.7-10.4) Magnesium Level 2.1 mg/dL (1.6-2.6) Triglycerides Level 191 mg/dL (< 150) Cholesterol Level 136 mg/dL (< 200) LDL Cholesterol 85 mg/dL (< 100) HDL Cholesterol 28 mg/dL (40-59) Thyroid Stimulating Hormone (TSH) 4.23 uIU/mL (0.55-4.78) Troponin I High Sensitivity < 3 ng/L (</=54) Other Laboratory Tests 03/28/25 03:26 Brief Hx & Hospital Course: 69-year-old male with a known history of hypertension, history of DVT currently on Eliquis, COPD, hypothyroidism initially presented to the hospital with the chest pain. Patient was eventually admitted. Patient does have known past medical history of coronary artery disease hypertension and left lower extremity DVT currently on Eliquis. Patient was evaluated by Cardiology and underwent left heart catheterization which shows evidence of mild coronary artery disease with circumflex being 50-70% stenosis. No intervention was done. Patient was discharged with a medical management including Jardiance. Patient was recommended to follow up with the PCP and Cardiology upon discharge. Condition at Discharge: Stable Final Diagnosis/Problems List 1. Hypertensive urgency, resolved 2. Chest pain status post left heart catheterization shows evidence of a 50-70% stenosis of left circumflex, medical management was recommended 3. COPD not in exacerbation 4. History of DVT currently on Eliquis 5. Hypothyroidism Discharge Disposition: Home SNF Discharge Will this Physician continue t: No Discharge Instruct/Medications Diet: Cardiac 2g Na,low cholest Activity: No Restrictions, As Tolerated Follow Up/Referral: Please follow up with the PCP in one week Follow up with Dr. Goldsmith in 1-2 weeks Medications: Medication as prescribed New Medications: Aspirin (Aspir-Low) 81 Mg Tab 81 MG PO DAILY for 30 Days, #30 TAB Atorvastatin Calcium (Atorvastatin Calcium) 20 Mg Tab 40 MG PO HS, #60 TAB Empagliflozin (Jardiance) 10 Mg Tab 10 MG PO DAILY, #30 TAB Losartan Potassium (Losartan Potassium) 50 Mg Tab 50 MG PO BID, #60 TAB Metoprolol Tartrate (Lopressor) 25 Mg Tb 25 MG PO BID, #60 TAB Continued Medications: Apixaban Base (Eliquis) 5 Mg Tab 5 MG PO BID for STOP ON 01/25/24, TAB Thyroid ([place] Thyroid) 60 Mg Tab 1 TAB PO DAILY for LOW THYROID, #30 TAB 5 Refills Discontinued Medications: Losartan Potassium (Losartan Potassium) 100 Mg Tab 100 MG PO DAILY for HTN for 30 Days, MG Metoprolol Tartrate (Metoprolol Tartrate) 25 Mg Tab 25 MG PO DAILY for HTN for 30 Days, MG Scheduled Apixaban Base (Eliquis), 5 MG PO BID, (Reported) Aspirin (Aspir-Low), 81 MG PO DAILY Atorvastatin Calcium (Atorvastatin Calcium), 40 MG PO HS Empagliflozin (Jardiance), 10 MG PO DAILY Losartan Potassium (Losartan Potassium), 50 MG PO BID Metoprolol Tartrate (Lopressor), 25 MG PO BID Thyroid ([place] Thyroid), 1 TAB PO DAILY, (Reported) Discharge Statement: "Patient was advised to return to the ER or call 911 if any headaches, dizziness, shortness of breath, chest pain, abdominal pain, bleeding, fevers, or worsening of medical condition. Patient was counseled about treatment plan, medications, possible side effects, patientverbalized understanding. All questions were answered to the best of my ability. This discharge took greater then 30 minutes in planning, reviewing documentation, counseling the patient, and discussing with other team members." ASSESSMENT ASSESSMENT Assessment Mild CAD. Diastolic dysfunction. Chest pain status post coronary angiogram shows evidence of 50-70% stenosis of the left circumflex 2. History of DVT currently on Eliquis Date of Service: Mar 28, 2025 Billing Provider: LAWRENCE DE LEÓN MD Common Visit Codes: NOT BILLABLE LAWRENCE DE LEÓN MD Mar 28, 2025 16:08
[2025-03-28] MEDS ORDERED: ATORVASTATIN 20 MG TAB PO SCH (22:00)
[2025-03-29] MEDS ORDERED: EMPAGLIFLOZIN 10 MG TAB PO SCH (10:00)
--- NOTE | 2025-03-30 15:26 | DVHSR ---
APPROVED REPORT EXAM: Two-dimensional and M-mode echocardiogram with Doppler and color Doppler. Blood Pressure: 126/81 mmHg INDICATION Chest Pain RISK FACTORS Height: 5'9, Weight: 230 DIMENSIONS LVDd 4.6 (3.8-5.7cm) LA (2D) 3.4 (1.9-4.0cm) Aortic Root 2.9 (2.0-3.7cm) LVDs 3.2 (2.5-4.0cm) LA (MM) (1.9-4.0cm) Aortic Cusp Exc 1.6 (1.5-2.0cm) EF (%) 56.0 (55-70%) Rt. Atrium 3.4 (1.9-4.0cm) Asc. Aorta 3.4 cm IVSd 1.4 (0.7-1.1cm) RV (D) (1.8-2.4cm) PWd 1.2 (0.7-1.1cm) Mitral Valve Mitral Mitral Stenosis E wave 0.57m/s MV Mean GR. mmHg A wave 0.67m/s MV Peak GR. mmHg E/A ratio 0.9 2D MVA cm2 DECEL Time 202ms PRESS 1/2 Time ms Aortic Valve Aortic Valve Aortic Stenosis V1 0.79m/s AO Mean GR. 3mmHg V2 1.06m/s AO Peak GR. 4mmHg LVOT Diameter 2.3 (1.8-2.4cm) Doppler SERA 3.09cm2 Pulmonic Valve V2 0.99m/s Other Information Technically limited study due to body habitus. Conclusion Sinus rhythm. Mild concentric LVH. Valves are normal. EF of 60% with normal RV function. Dopplers unremarkable. No pericardial effusion masses or vegetations.
== END 2025-03-28 18:20 | disposition home or self-care (01) | DRG 287 ==
LOC: ER 20:59 → OVERFLOW 23:15 → TELE-WESTW 03-27 21:10
PROVIDERS: ADMIT Nurse Practitioner Family; ATTEND Nurse Practitioner Family
PROC: 4A023N7 Measurement of Cardiac Sampling and Pressure, Left Heart, Percutaneous Approach (ICD-10-PCS; principal; 2025-03-28)
PROC: B211YZZ Fluoroscopy of Multiple Coronary Arteries using Other Contrast (ICD-10-PCS; 2025-03-28)
PROC: B215YZZ Fluoroscopy of Left Heart using Other Contrast (ICD-10-PCS; 2025-03-28)
PROC: 4A033BC Measurement of Arterial Pressure, Coronary, Percutaneous Approach (ICD-10-PCS; 2025-03-28)
DX: I25.10 Atherosclerotic heart disease of native coronary artery without angina pectoris (principal); I16.0 Hypertensive urgency; Z79.01 Long term (current) use of anticoagulants; J44.9 Chronic obstructive pulmonary disease, unspecified; E66.9 Obesity, unspecified; R07.89 Other chest pain; I42.9 Cardiomyopathy, unspecified; E07.9 Disorder of thyroid, unspecified; Z68.34 Body mass index [BMI] 34.0-34.9, adult; I10 Essential (primary) hypertension; Z88.8 Allergy status to other drugs, medicaments and biological substances; Z79.899 Other long term (current) drug therapy; Z86.718 Personal history of other venous thrombosis and embolism; Z80.0 Family history of malignant neoplasm of digestive organs
CPT/HCPCS: 36415; 71045; 80048; 80061; 81001; 83036; 83735; 84443; 84484; 85025; 85610; 85730; 86850; 86900; 86901; 93005; 93306; 93458; 93571; 99152; G0378; J2250; Q9967